=== PATIENT | male | born 1935 | race Hispanic/Latino ===

== ENCOUNTER 2019-06-02 13:48 | Emergency (ER) | payer MEDICARE ==
--- NOTE | 2019-06-02 15:06 | Emergency Department Report ---
ED Fall HPI - General Chief Complaint: Fall Stated Complaint: GROUND LEVEL Time Seen by Provider: 06/02/19 14:19 Source: EMS Mode of arrival: Stretcher - History of Present Illness Initial Comments: Patient is a 83-year-old gentleman who suffered a fall at [facility]. Fall likely was 2 days ago according to the sitter that is here with the patient. Patient appears to have some dementia and is having a hard time remembering the exact mechanism of his injury. Patient has no however complaints of loss of consciousness although his history is on reliable. Patient complaining of right hip pain some pain to the left elbow and his bilateral knees. - Related Data Allergies Allergy/AdvReac Type Severity Reaction Status Date / Time Iodine and Iodide Containing Allergy Unknown Verified 06/02/19 17:03 Produc ED Review of Systems ROS: Stated complaint: GROUND LEVEL Other details as noted in HPI Comment: Unobtainable due to pts medical conditions ED Past Medical Hx - Past Medical History Previous Medical History?: Yes Hx Hypertension: Yes Hx Diabetes: Yes Hx Psychiatric Treatment: Yes (DEMENTIA, HALLUCINATIONS) - Social History Smoking Status: Never Smoker Substance Use Type: None ED Physical Exam - General Limitations: No Limitations General appearance: alert, in no apparent distress - Head Head exam: Present: normocephalic. Absent: atraumatic (Patient with a bruise to the left forehead) - Eye Eye exam: Present: normal appearance, PERRL - ENT ENT exam: Present: mucous membranes moist - Neck Neck exam: Present: normal inspection - Respiratory Respiratory exam: Present: normal lung sounds bilaterally. Absent: respiratory distress, wheezes, rales, rhonchi - Cardiovascular Cardiovascular Exam: Present: regular rate, normal rhythm. Absent: systolic murmur, diastolic murmur, rubs, gallop - GI/Abdominal GI/Abdominal exam: Present: soft, normal bowel sounds. Absent: distended, tenderness, guarding, rebound - Rectal Rectal exam: Present: deferred - Extremities Exam Extremities exam: Present: normal inspection - Expanded Upper Extremity Exam Left Elbow exam: Present: full ROM, tenderness, swelling, abrasion - Expanded Lower Extremity Exam Right Hip exam: Present: tenderness Knee exam: Present: tenderness, ecchymosis Left Knee exam: Present: full ROM, tenderness, swelling, ecchymosis - Back Exam Back exam: Present: normal inspection - Neurological Exam Neurological exam: Present: alert, oriented X3 - Psychiatric Psychiatric exam: Present: normal affect, normal mood - Skin Skin exam: Present: warm, dry, intact, normal color. Absent: rash ED Course Vital Signs 06/02/19 06/02/19 14:02 15:05 Temperature 98 F Pulse Rate 99 H 104 H Respiratory 16 16 Rate Blood Pressure 111/55 124/83 [Left] O2 Sat by Pulse 94 98 Oximetry ED Medical Decision Making - Radiology Data X-ray of the pelvis left elbow and bilateral knees show no acute fracture. Patient could not sit still for the CT of the head - Medical Decision Making Patient is 83-year-old gentleman with Alzheimer's dementia who is at [facility] who fell several days ago. Patient is at his baseline. I had hoped to get a CT of his head however he was uncooperative. Patient was calm and his room but anytime he went to the CT scanner even with medications to calm him he became very nervous and started kicking. Again patient is at his baseline had the patient had a small brain bleed he does not appear to have progressed and would likely not need neurosurgical intervention at this time. Patient be discharged back to [place] for continued management. Critical care attestation.: If time is entered above; I have spent that time in minutes in the direct care of this critically ill patient, excluding procedure time. ED Disposition Clinical Impression: Fall Qualifiers: Encounter type: initial encounter Qualified Code(s): W19.XXXA - Unspecified fall, initial encounter Closed head injury Qualifiers: Encounter type: initial encounter Qualified Code(s): S09.90XA - Unspecified injury of head, initial encounter Knee contusion Qualifiers: Encounter type: initial encounter Laterality: unspecified laterality Qualified Code(s): S80.00XA - Contusion of unspecified knee, initial encounter Contusion, hip Qualifiers: Encounter type: initial encounter Laterality: right Qualified Code(s): S70.01XA - Contusion of right hip, initial encounter Elbow abrasion Qualifiers: Encounter type: initial encounter Laterality: left Qualified Code(s): S50.312A - Abrasion of left elbow, initial encounter Disposition: - TO HOME OR SELFCARE Is pt being admited?: No Does the pt Need Aspirin: No Condition: Stable Instructions: Minor Head Injury (ED), Scalp Contusion in Adults (ED), Musculoskeletal Pain (ED), Fall Prevention for Older Adults (ED) Referrals: ROSINA SHEPARD [Other] - 3-5 Days Time of Disposition: 21:47
--- NOTE | 2019-06-02 15:28 | XRay Report ---
Left elbow 3 views INDICATION: Left elbow pain following injury IMPRESSION: No fracture or subluxation of the left elbow identified. Signer Name: Erick Ruffin MD Signed: 06/02/2019 3:23 PM Workstation Name: [id number]
--- NOTE | 2019-06-02 15:28 | XRay Report ---
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 No acute fracture or subluxatio n is identified. Signer Name: Erick Ruffin MD Signed: 06/02/2019 3:24 PM Workstation Name: [id number]
--- NOTE | 2019-06-02 15:29 | XRay Report ---
PELVIS ONE VIEW INDICATION: MAIN: bilat hip pain after fall. COMPARISON: None. IMPRESSION: No acute osseous or soft tissue abnormality. 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 No osteonecrosis. Signer Name: John Page Jr, MD Signed: 06/02/2019 3:24 PM Workstation Name: [id number]
[2019-06-02] MEDS ORDERED: ZIPRASIDONE MESYLATE 20 MG VIAL IM ONE (17:30)
[2019-06-02] MEDS ORDERED: LORazepam 2 MG/ML VIAL IM ONE (18:51)
[2019-06-02] MEDS ORDERED: HALOPERIDOL LACTATE 5 MG/1 ML INJ IM ONE (18:51)
[2019-06-02] MEDS ORDERED: diphenhydrAMINE 50 MG/ML VIAL IM ONE (18:53)
[2019-06-02 22:13] VITALS: BP 95/58
== END 2019-06-02 22:25 | disposition home or self-care (01) ==
LOC: ED 13:48
DX: S80.02XA Contusion of left knee, initial encounter (principal); S80.01XA Contusion of right knee, initial encounter; S70.01XA Contusion of right hip, initial encounter; S50.312A Abrasion of left elbow, initial encounter; S09.90XA Unspecified injury of head, initial encounter; I10 Essential (primary) hypertension; E11.9 Type 2 diabetes mellitus without complications; Z88.8 Allergy status to other drugs, medicaments and biological substances; W18.30XA Fall on same level, unspecified, initial encounter; Y93.89 Activity, other specified; Y92.89 Other specified places as the place of occurrence of the external cause; Y99.8 Other external cause status
CPT/HCPCS: 72170; 73080; 73560; 96372; 99284; J1200; J1630; J2060; J3486